=== PATIENT | male | born 1980 | race Caucasian/White ===

== ENCOUNTER 2023-04-15 11:11 | Day surgery (SDC) | payer MEDICAID ==
[2023-04-15] VITALS (10 sets, daily range): BP systolic 117–144; BP diastolic 54–90; PULSE 57–69; RESP 12–18; TEMP 97.9; O2SAT 94–100
[~2023-04-15] VITALS: Ht 177.8 cm; Wt 107.6 kg
[~2023-04-15 11:11] MED LIST: FAMO20TA8 PO; FLO0.4C PO; OMEP40CA21 PO; TADA20TA70 PO; cefazolin 2gm/D5W 100mL 100 ML IV ONE; famotidine 20mg tablet PO ONE; ringers solution, lacted 1,000 ML IV SCH
[2023-04-15] MEDS ORDERED: propofol inj 20 ML IV ONE (11:39)
[2023-04-15] MEDS ORDERED: LIDOcaine 2% (20mg/ml) 5ml vial ONE (11:39)
[2023-04-15] MEDS ORDERED: LIDOcaine 1% 30ml preserv. free vial ONE (11:49)
[2023-04-15] MEDS ORDERED: BUPIVAcaine 2.5mg/ml inj 50ml vial (contains preservative) ONE (11:49)
[2023-04-15 12:00] LABS: BASOPHILS % (AUTO) 0.3 % (0-1); EOSINOPHILS # (AUTO) 0.2 X10'3 (0-0.9); EOSINOPHILS % (AUTO) 1.5 % (0-6); HEMATOCRIT 46.3 % (42.0-52.0); HEMOGLOBIN 15.9 g/dl (14.0-17.9); LYMPHOCYTES # (AUTO) 1.8 X10'3 (1.1-4.8); LYMPHOCYTES % (AUTO) 17.4 % (21-51); MEAN CORPUSCULAR HEMOGLOBIN 30.6 PG (27.0-31.0); MEAN CORPUSCULAR HGB CONC 34.3 g/dL (33.0-36.5); MEAN PLATELET VOLUME 7.4 FL (7.4-10.4); MONOCYTES # (AUTO) 0.8 X10'3 (0-0.9); MONOCYTES % (AUTO) 8.2 % (2-12); NEUTROPHILS # (AUTO) 7.4 X10'3 (1.8-7.7); NEUTROPHILS % (AUTO) 72.6 % (42-75); PLATELET COUNT 181 X10'3 (140-440); RED BLOOD COUNT 5.21 X10'6 (4.70-6.10); WHITE BLOOD COUNT 10.1 X10'3 (4.5-11.0)
[2023-04-15 12:13] LABS: ALANINE AMINOTRANSFERASE 31 U/L (12-78); ALBUMIN 4.1 G/DL (3.4-5.0); ALBUMIN/GLOBULIN RATIO 1.2 (1.1-1.5); ALKALINE PHOSPHATASE 47 IU/L (46-116); ANION GAP 10 (8-16); ASPARTATE AMINO TRANSFERASE 18 U/L (10-37); BILIRUBIN,TOTAL 0.9 MG/DL (0.1-1.0); BLOOD UREA NITROGEN 13 MG/DL (7-18); BUN/CREATININE RATIO 18.1 (10.0-20.0); CHLORIDE 105 MMOL/L (99-107); CREATININE 0.72 MG/DL (0.60-1.10); GLUCOSE 95 MG/DL (70-104); POTASSIUM 3.8 MMOL/L (3.5-5.1); SODIUM 138 MMOL/L (135-145); TOTAL CARBON DIOXIDE 23.2 MMOL/L (24-32); TOTAL PROTEIN 7.4 G/DL (6.4-8.2); eCRCL 141 ML/MIN; eGFR > 90 ML/MIN
[2023-04-15] MEDS ORDERED: ringers solution, lacted 1,000 ML IV SCH (12:15)
[2023-04-15] MEDS ORDERED: ondansetron/PF 4mg/2ml inj IV PRN (12:15)
[2023-04-15] MEDS ORDERED: morphine 2 MG/ML inj. syringe IV PRN (12:15)
[2023-04-15] MEDS ORDERED: labetalol 20mg/4ml (5mg/ml) syringe IV PRN (12:15)
[2023-04-15] MEDS ORDERED: enalaprilat dihydrate 2.5mg/2ml vial IV PRN (12:15)
[2023-04-15] MEDS ORDERED: morphine 4 MG/ML inj SYRINge IV PRN (12:15)
[2023-04-15] MEDS ORDERED: proCHLORperazine 10 MG/2 ml inj IV PRN (12:15)
[2023-04-15] MEDS ORDERED: meperidine/PF 25mg/ml syringe IV PRN ×3 (12:15)
[2023-04-15] MEDS ORDERED: midazolam 1 mg/ML 2ml injection ONE (12:26)
[2023-04-15] MEDS ORDERED: fentaNYL /PF 50mcg/ml 5ml ampule ONE (12:27)
[2023-04-15] MEDS ORDERED: rocuronium 10mg/ml inj IV ONE (12:30)
[2023-04-15] MEDS ORDERED: LIDOcaine 1% 30ml preserv. free vial IJ ONE (12:33)
[2023-04-15] MEDS ORDERED: dexamethasone sod phosphate 4mg/ml inj. ONE (12:34)
[2023-04-15] MEDS ORDERED: BUPIVAcaine/PF 2.5 mg/ml (0.25%) 30ml vial IJ ONE (12:35)
[2023-04-15] MEDS ORDERED: acetaminophen 1,000mg/100ml IV 100 ML IV ONE (13:52)
[2023-04-15] MEDS ORDERED: HYDROcodone/acetaminophen 5mg/325mg tablet PO PRN (14:15)
== END 2023-04-15 15:26 | disposition home or self-care (01) ==
LOC: PAS 11:11
PROVIDERS: ATTEND Surgery
DX: K40.90 Unilateral inguinal hernia, without obstruction or gangrene, not specified as recurrent (principal); E66.9 Obesity, unspecified; Z68.34 Body mass index [BMI] 34.0-34.9, adult; K21.9 Gastro-esophageal reflux disease without esophagitis; N40.0 Benign prostatic hyperplasia without lower urinary tract symptoms; F12.90 Cannabis use, unspecified, uncomplicated; Z79.899 Other long term (current) drug therapy
CPT/HCPCS: 36415; 49591; 49650; 80053; 82948; 85025; C1781; J0131; J0690; J0780; J1100; J2175; J2250; J2405; J2704; J3010; J3490; J7030; J7120; S2900; Z7506; Z7508; Z7512; A4215; A4618